=== PATIENT | female | born 1995 | race Caucasian/White ===

== ENCOUNTER → 2019-10-20 | Outpatient (CLI) | payer BC ==
[2012-05-18 20:29] VITALS: BP 104/64
[~2019-10-20] MED LIST: ALEVE220 MG PO; BEYAZ1 TAB PO; BLOOD PRESSURE MED; MULTI JUNIOR W/1 TAB PO
== END ==
LOC: RAD 07:51
DX: E01.0 Iodine-deficiency related diffuse (endemic) goiter (principal)